=== PATIENT | male | born 1935 | race Caucasian/White ===

== ENCOUNTER 2016-10-12 06:10 | Outpatient (CLI) ==
--- NOTE | 2016-10-16 13:53 | ECHO2D ---
Date of Exam: 10/12/16 Ordering Physician: RIKA GAMING Room #: OP Reason for Echo: AORTIC STENOSIS, PACEMAKER, CAD WITH STENT, SOB M-Mode Normal Adult Results LV Dimensions Normal Adult Results AoV Opening excursions >1.6 >1.4 LVEDD-base- 3.5-5.8 4.5 Ao root dimensions 2.0-3.7 3.2 LVESD-base- 3.1-4.6 L. Atrium dimensions 1.9-3.8 4.2 Post. Wall thickness 0.8-1.1 1.3 IV septum (thickness) 0.7-1.2 1.2 Post. Wall excursion 0.72-1.3 NORMAL Septal motion NORMAL Systolic motion R. Ventricular cavity 1.5-2.0 NORMAL LVEF 60% 57% Paradoxical septal wall motion NORMAL 2-D : CALCIFIC MITRAL AORTIC STENOSIS, NORMAL LEFT VENTRICULAR CONTRACTILITY, NO EFFUSION, MILDLY ENLARGED LEFT ATRIAL CAVITY, NO EFFUSION, NORMAL LEFT VENTRICULAR CONTRACTILITY M-MODE: MV: NORMAL AV: MILD CALCIFIC AORTIC STENOSIS. VALVE AREA PLANIMETRY 2.2 CM2 TV: NORMAL PV: NORMAL CHAMBER SIZE: ENLARGED LEFT ATRIAL CAVITY WALL MOTION: NORMAL PERICARDIUM: NORMAL INTERPRETATION: 1. LEFT VENTRICULAR HYPERTROPHY-BORDERLINE 2. CALCIFIC AORTIC STENOSIS-MILD (2.2 CM) 3. NORMAL LEFT VENTRICULAR CONTRACTILITY MTDD
== END 2016-10-12 06:11 | disposition home or self-care (01) ==
LOC: CAR 06:10
PROVIDERS: ATTEND Internal Medicine
DX: I35.0 Nonrheumatic aortic (valve) stenosis (principal); R06.02 Shortness of breath; I25.10 Atherosclerotic heart disease of native coronary artery without angina pectoris; Z95.0 Presence of cardiac pacemaker; Z95.5 Presence of coronary angioplasty implant and graft

== ENCOUNTER 2017-03-31 01:41 | Emergency (ER) ==
[2017-03-31 02:01] VITALS: TEMP 97.3; BMI 23.1
--- NOTE | 2017-03-31 02:30 | CT ---
EXAM: CT brain without contrast HISTORY: Fall with head injury and pain TECHNIQUE: CT of the brain without intravenous contrast FINDINGS: Subdural hematoma along the falx measuring a maximum of 4 mm thickness. There is no mass effect associated. Generalized involutional atrophy, moderate. Chronic microvascular changes of the white matter tracts, moderate. The bony cranium appears normal. The visualized paranasal sinuses are clear. Soft tissues without significant abnormality. IMPRESSION: 1. Critical result: Parafalcine subdural hematoma without mass effect or midline shift. 2. Involutional atrophy and chronic microvascular changes of the white matter tracts. Discussed with emergency room nurse Bassam at 0225 hours Central time 03/31/2017. The ordering phys ician was not available at the time of communication.
--- NOTE | 2017-03-31 02:38 | CT ---
Exam: CT cervical spine without contrast History: Fall with injury and pain Technique: [address] cervical spine with multiplanar reformations FINDINGS: Cervical spine shows multilevel anterior bridging osteophytosis with associated ankylosis of C3 through C7. Obliquely oriented fracture through the anterior aspect of the C4 vertebral body w ith maximum fracture gap of CHF. Proximally 3 mm. There is no associated anterior or posterior list hesis. There is no fracture of the posterior aspect of the vertebral body or posterior elements. Ce ntral canal remains widely patent. No additional cervical fractures are seen. No immediate paravert ebral soft tissue abnormalities. Atherosclerotic vascular calcifications are present. The lung apic es are clear. Impression: 1. Critical result: C4 vertebral body fracture without associated listhesis or retropulsion. 2. Multilevel cervical ankylosis Discussed with patient nurse "Bassam" at 0220 hours. Ordering physician was not available at time o f communication.
--- NOTE | 2017-03-31 02:43 | ED.PDOC ---
General ED Provider: Dr. KARAN JACKSON Chief Complaint: Fall Stated Complaint: Patient is a resident of [facility] who woke up this morning stood up, lost balance twisting his head and hitting the back of his bed on the wall and falling. Complains of neck pain. A the scene he refused to have c collor. He is still able to move everthing. Time Seen by Physician: 02:43 Mode of Arrival: Ambulance Information Source: Patient, [facility], EMT Exam Limitations: Dementia Primary Care Provider: RIKA GAMING Seen Within Last 72 Hours for Same Complaint By: ED Nursing and Triage Documentation Reviewed and Agree: Yes Reviewed sepsis parameters & appropriate labs ordered?: No System Inflammatory Response Syndrome: Not Applicable Sepsis Protocol: For patient's 13 years and over: Temp is 96.8 and below OR 101 and greater Pulse >90 BPM Resp >20/minute Acutely Altered Mental Status Are patient's symptoms suggestive of a new infection, such as: -Pneumonia -Skin, Soft Tissue -Endocarditis -UTI -Bone, Joint Infection -Implantable Device -Acute Abdominal Infection -Wound Infection -Meningitis -Blood Stream Catheter Infection -Unknown System Inflammatory Response Syndrome: Not Applicable Trauma/Injury Complaint Exam - Head Injury Complaint/Exam Location of Pain: Reports: Scalp Mechanism of Injury: Reports: Trauma Onset/Duration: just prior to arrival Symptoms Are: Still present Initial Severity: Moderate Current Severity: Moderate Character: Reports: Throbbing Aggravating: Reports: None Associated Signs and Symptoms: Reports: Neck pain Loss of Consciousness: None SDH Risk Factors: Present: Male - Trauma Complaint/Exam Location of Pain or Injury: Reports: Head, Neck, Back Mechanism of Injury: Reports: Fall Onset/Duration: just prior to arrival Symptoms Are: Still present Timing of Treatment: Immediate Initial Severity: Moderate Current Severity: Moderate Character: Reports: Aching Aggravating: Reports: Movement, Palpation Associated Signs and Symptoms: Denies: LOC, Confusion, Memory loss, Lethargy, Vomiting, Bleeding, Bruising, Swelling, Extremity disuse, Painful respiration, Hoarseness, Dysphagia, Hemoptysis, Significant blood loss Glascow Coma Scale (see protocol): 15 Compartment Syndrome Risk Factors: Present: Pain Trauma Findings: Present: Neck tenderness, Neck spasm. Absent: [place] eyes, Hemotympanum, Nasal deformity, Dental tenderness, Dental injury, Dental malocclusion Skin Findings: Present: Abrasion (right elbow ) Differential Diagnoses: Fracture, Hematoma Review of Systems - Review Of Systems Constitutional: Reports: No symptoms Eyes: Reports: No symptoms Ears, Nose, Mouth, Throat: Reports: No symptoms Respiratory: Reports: No symptoms Cardiac: Reports: No symptoms GI: Reports: No symptoms : Reports: No symptoms Musculoskeletal: Reports: Back pain, Joint pain, Neck pain Skin: Reports: Bruising Neurological: Reports: Anxiety, Headache Endocrine: Reports: No symptoms Hematologic/Lymphatic: Reports: No symptoms All Other Systems: Reviewed and Negative Past Medical History - Past Medical History Endocrine: Reports: Hypothyroid Cardiovascular: Reports: Hypertension Respiratory: Reports: None Hematological: Reports: None Gastrointestinal: Reports: None Genitourinary: Reports: None Neuro/Psych: Reports: Anxiety, Depression, Dementia Musculoskeletal: Reports: None Cancer: Reports: None - Surgical History General Surgical History: Reports: Pacemaker - Family History Family History: Reports: Unknown - Social History Smoking Status: Former smoker Hx Substance Use: No Alcohol Screening: None - Immunizations Tetanus Shot up to Date: No (unknown) Physical Exam - Physical Exam Appearance: Well-appearing, No pain distress, Well-nourished Eyes: KACI (2mm bilaterally ), EOMI, Conjunctiva clear ENT: Ears normal (except cerumen impaction on the left ), Nose normal, Oropharynx normal Neck: Nonsupple Respiratory: Airway patent, Breath sounds clear, Breath sounds equal, Respirations nonlabored Cardiovascular: RRR, Pulses normal, No rub, No murmur GI/: Soft, Nontender, No masses, Bowel sounds normal, No Organomegaly Musculoskeletal: Normal strength, ROM intact, No edema, No calf tenderness Skin: Warm, Dry, Normal color Neurological: Sensation intact, Motor intact, Reflexes intact, Cranial nerves intact, Alert, Oriented Psychiatric: Anxious Interpretation - Radiology Interpretation Radiology Interpretation By: Radiologist Radiology Results: Positive Exam Interpreted: CT Scan (head and C spine. C4 vertiebral body fracture without associated listhesis or retropulsiion, Parafalcial subdural hematoma without mass effect or midline shift. ) Radiology Interpretation By: Radiologist Exam Interpreted: CT Scan (lumbar and Pelvis no acute fracture ) Physician Notification - Case Discussed Physician Notified: Dr. Murray Saleh Time of Notification: 02:56 (accepted to [facility] ICU) Critical Care Note - Critical Care Note Total Time (mins): 30 Course - Course Orders, Labs, Meds: Orders Category Date Time Status ED IV/MEDIPORT/POWERPORT .ONCE EMERGENCY 03/31/17 03:23 Active 0.9 % Sodium Chloride [Saline Flush] MEDS 03/31/17 03:23 Discontinued 1 syr IVF PRN PRN CT CERVICAL SPINE W/O CONTRAST Stat RADS 03/31/17 01:[address] HEAD W/O CONTRAST Stat RADS 03/31/17 01:[address] LUMBAR SPINE W/O CONTRAST Stat RADS 03/31/17 02:[address] PELVIS W/O CONTRAST Stat RADS 03/31/17 02:41 Completed Medications Discontinued Medications Generic Name Dose Route Start Last Admin Trade Name Freq PRN Reason Stop Dose Admin Sodium Chloride 1 syr 03/31/17 03:23 Saline Flush IVF PRN PRN To flush IV Vital Signs: Temp Pulse Resp BP Pulse Ox 03/31/17 03:09 60 15 178/74 H 97 03/31/17 01:41 97.3 F L 61 20 174/74 H 98 Departure - Departure Time of Disposition: 02:50 Disposition: TSF SHORT-TRM HOSP Discharge Problem: Fracture of C4 vertebra, closed Qualifiers: Encounter type: initial encounter Fracture morphology: unspecified fracture morphology Fracture alignment: nondisplaced Qualified Code(s): S12.301A - Unspecified nondisplaced fracture of fourth cervical vertebra, initial encounter for closed fracture Subdural hematoma, post-traumatic Qualifiers: Encounter type: initial encounter Loss of consciousness presence/duration: without LOC Qualified Code(s): S06.5X0A - Traumatic subdural hemorrhage without loss of consciousness, initial encounter Condition: Stable Pt referred to PMD for follow-up: Yes IPMP verified?: No Allergies/Adverse Reactions: Allergies alprazolam [From Xanax] Adverse Reaction (Verified 03/31/17 01:54) iodine Adverse Reaction (Verified 03/31/17 01:54) Home Medications: Ambulatory Orders Acetaminophen 650 mg PO Q4H PRN 03/31/17 Bisacodyl [Dulcolax] 10 mg RC DAILY PRN 03/31/17 Buspirone HCl 15 mg PO QID 03/31/17 Diazepam 10 mg PO BID 03/31/17 Divalproex Sodium [Depakote] 125 mg PO TID 03/31/17 Divalproex Sodium [Depakote] 500 mg PO BEDTIME 03/31/17 Donepezil HCl 10 mg PO BEDTIME 03/31/17 Levothyroxine Sodium 50 mcg PO DAILY 03/31/17 Losartan Potassium [Cozaar] 100 mg PO DAILY 03/31/17 Magnesium Hydroxide [Milk of Magnesia] 30 ml PO DAILY PRN 03/31/17 Memantine HCl [Namenda] 5 mg PO DAILY 03/31/17 Metoprolol Tartrate [Lopressor] 50 mg PO DAILY 03/31/17 Nitroglycerin 0.4 mg SL DIRECTED PRN 03/31/17 Paroxetine HCl 20 mg PO DAILY 03/31/17 Quetiapine Fumarate 25 mg PO BID 03/31/17 Sodium Phosphate,[place]-Dibasic [Fleet Enema] 133 ml RC DAILY PRN 03/31/17 Pt. Stabilized Within Hospital's Capabilities/Transferred To: [facility] Disposition Discussed With: Patient
[2017-03-31 03:10] VITALS: BP 178/74
--- NOTE | 2017-03-31 03:29 | CT ---
EXAM: CT lumbar spine without intravenous contrast 03/31/2017. Sagittal and coronal reformatted ney ges obtained HISTORY: Lower back pain. Fall COMPARISON: None. FINDINGS: Normal anatomic alignment is maintained. Vertebral bodies show no evidence of acute fract ure. Multilevel chronic degenerative disc disease. Chronic degenerative endplate change. There is multilevel hypertrophic facet arthropathy. There is multilevel posterior disc bulge/osteophyte complex. Multilevel spinal and neural foraminal stenosis. These findings appear chronic. No acute fracture or subluxation at any level. IMPRESSION: Chronic degenerative disc disease. Chronic facet arthropathy. No acute post traumatic osseous abnormality.
--- NOTE | 2017-03-31 03:31 | CT ---
EXAM: CT of the pelvis without contrast. HISTORY: Low back pain. PROCEDURE: Contiguous axial CT images of the pelvis without contrast with coronal and sagittal refor mats. FINDINGS: The bones are intact with no evidence of fracture. There are degenerative changes involving the bilateral sacroiliac joints. No subluxation or dislocation. There are degenerative changes in t he lumbar spine. There is diverticulosis of the colon. No free fluid or free air in the pelvis. The bladder is minimally filled with no abnormality identified. The seminal vesicles are unremarkable. The prostate gland is enlarged measuring 6.1 cm in diameter. Impression: Degenerative changes as described. Diverticulosis of the colon. Enlarged prostate gland.
== END 2017-03-31 03:25 | disposition short-term general hospital (02) ==
LOC: ED 01:41
DX: S06.5X0A Traumatic subdural hemorrhage without loss of consciousness, initial encounter (principal); S12.301A Unspecified nondisplaced fracture of fourth cervical vertebra, initial encounter for closed fracture; I10 Essential (primary) hypertension; W19.XXXA Unspecified fall, initial encounter; Y92.129 Unspecified place in nursing home as the place of occurrence of the external cause
CPT/HCPCS: 99285

== ENCOUNTER 2017-04-11 10:11 | Outpatient (CLI) | END 2017-04-11 10:12 | disposition short-term general hospital (02) | LOC: AMBL 10:11 | PROVIDERS: ATTEND Internal Medicine | DX: Z04.3 Encounter for examination and observation following other accident (principal); S12.9XXD Fracture of neck, unspecified, subsequent encounter; W05.0XXA Fall from non-moving wheelchair, initial encounter; Y92.129 Unspecified place in nursing home as the place of occurrence of the external cause ==

== ENCOUNTER 2017-07-24 16:01 | Outpatient (CLI) | payer OTHER ==
--- NOTE | 2017-07-24 16:46 | US ---
EXAM: Right lower extremity venous Doppler History: Right leg pain. Technique: Multiple sonographic images through the right lower extremity were obtained. Color duple x Doppler was used to interrogate vascular flow. Findings: The right common femoral, greater saphenous, profunda, superficial femoral, popliteal, per edwards, posterior tibial and anterior tibial veins demonstrate spontaneous flow with normal compressio n and normal augmentation. 7.0 cm x 3.0 cm x 6.2 cm hematoma of the right inner thigh. Impression: 1. No sonographic evidence for deep venous thrombosis. 2. Hematoma of the right inner thigh.
== END 2017-07-24 16:02 | disposition home or self-care (01) ==
LOC: RAD 16:01
PROVIDERS: ATTEND Emergency Medicine
DX: M79.604 Pain in right leg (principal); S70.11XD Contusion of right thigh, subsequent encounter
CPT/HCPCS: 36415; 80053; 85025; 85610

== ENCOUNTER 2017-08-05 15:07 | Outpatient (CLI) | payer OTHER ==
--- NOTE | 2017-08-05 16:53 | US ---
EXAM: Right lower extremity venous Doppler duplex study HISTORY: Concern for DVT with lower extremity swelling. COMPARISON: Right lower extremity Doppler 07/24/2017 TECHNIQUE: Sonographic and Doppler evaluation of the right lower extremity vessels from the common f emoral through the anterior tibial veins were obtained. Augmentation and compression techniques were also performed. FINDINGS: There is spontaneous Doppler flow seen in the right lower extremity veins from the common femoral through the anterior tibial veins. There is normal color Doppler flow and wave spectral jaquelin sis. There is normal compression and augmentation throughout the lower extremity veins. Sonographic appearance of the soft tissues demonstrates a right sided lymph node measuring 4.1 x 1.5 x 2.5 cm. T here is a anechoic fluid collection just inferior to the previously noted hematoma measuring 2.5 x 1. 2 x 2.3 cm with the hematoma measuring 6.1 x 2.7 x 6.4 cm. The overall size of hematoma has decrease d in comparison to prior exam. IMPRESSION: 1. No lower extremity thrombus. 2. Mild decrease in size of hematoma with small adjacent anechoic fluid collection. 3. Probable reactive right-sided lymph node.
== END 2017-08-05 15:08 | disposition home or self-care (01) ==
LOC: RAD 15:07
PROVIDERS: ATTEND Internal Medicine
DX: M79.604 Pain in right leg (principal); M79.89 Other specified soft tissue disorders